=== PATIENT | female | born 1950 | race Caucasian/White ===

== ENCOUNTER 2016-12-22 13:48 | Emergency (ER) | payer MEDICARE ==
[~2016-12-22 13:48] MED LIST: 8 HOUR650 MG PO; BACLOFEN10 MG PO; CEFDINIR300 MG PO; CELLCEPT500 MG PO; CERTAGEN1 EACH PO; FEOSOL325 MG PO; LAXATIVE OF CHOICE PO; LIDODERM PATCH 51 EA TOP; LISINOPRIL 20MG20 MG PO; NEXIUM40 MG PO; NORVASC5 MG PO; PHENERGAN25 M1 PO; PLAQUENIL200 MG PO; PRILOSEC40 MG PO; REMICADE100 MG IV; RHEUMATREX2.5 MG PO; TRAZODONE 150M150 MG PO; ZANTAC300 MG PO; ZITHROMAX250 MG PO
[2016-12-22 14:29] LABS: BASOPHIL 0.2 % (0-2); EOSINOPHIL 0.6 % (0-7); HCT 37.2 % (37.0-47.0); HGB 12.4 g/dl (12.5-16.0); LYMPHOCYTE 23.5 % (15-48); MCH 31.6 pg (25.0-31.0); MCHC 33.3 g/dL (32.0-36.0); MCV 94.7 fL (78.0-100.0); MONOCYTE 7.6 % (0-12); MPV 8.5 fL (6.0-9.5); NEUTROPHIL 68.1 % (41-80); PLT 338 K/uL (150-400); RBC 3.93 M/uL (4.20-5.40); RDW 12.8 % (11.5-14.0)
[2016-12-22 14:48] LABS: BILIRUBIN - TOTAL 0.2 mg/dL (0.1-1.0); CREATININE 0.9 mg/dL (0.5-1.0); GLOBULIN (CALCULATION) 3.4 g/dL (2.2-4.2); POTASSIUM 4.2 mmol/L (3.5-5.1); TOTAL PROTEIN 7.4 g/dL (6.4-8.3)
[2016-12-22 14:57] LABS: BILIRUBIN NEGATIVE (NEGATIVE); BLOOD NEGATIVE Ery/uL (NEGATIVE); CLARITY CLEAR (CLEAR); COLOR YELLOW (YELLOW); GLUCOSE (U) NORMAL (NORMAL); KETONE (U) NEGATIVE (NEGATIVE); LEUKOCYTES 1+ Leu/uL (NEGATIVE); NITRITE NEGATIVE (NEGATIVE); PROTEIN TRACE (LOW) mg/dL (NEGATIVE); UROBILINOGEN 0.2 mg/dL (0.2-1.0); pH 6.5 (5.0-9.0)
[2016-12-22 15:01] LABS: BACTERIA 3+
== END 2016-12-22 18:52 | disposition home or self-care (01) ==
LOC: FER 13:48
PROVIDERS: Internal Medicine
DX: S02.2XXA Fracture of nasal bones, initial encounter for closed fracture (principal); S80.01XA Contusion of right knee, initial encounter; I95.9 Hypotension, unspecified; Z88.5 Allergy status to narcotic agent; Z79.899 Other long term (current) drug therapy; W22.8XXA Striking against or struck by other objects, initial encounter
CPT/HCPCS: 36415; 70160; 70450; 70551; 73564; 80053; 81001; 84484; 85025; 85651; 90471; 90715; 93005; J1170; J2175

== ENCOUNTER 2021-04-20 16:31 | Emergency (ER) | payer MEDICARE ==
[~2021-04-20 16:31] MED LIST changes: +FLEXERIL10 MG PO; +HYDROXYCHLOROQ200 MG PO; +K-DUR20 MEQ PO; +LASIX40 MG PO; +NORCO 5-325 TA1 EACH PO; +TIMOPTIC 0.5%1 EACH EYEBOTH; +ZOFRAN4 MG PO
[2021-04-20 17:34] LABS: CORONAVIRUS 2019 SARS-COV-2 NEGATIVE (NEGATIVE); INFLUENZA A NAA NEGATIVE (NEGATIVE)
[2021-04-20 19:32] LABS: BASOPHIL 0.2 % (0-2); EOSINOPHIL 0.1 % (0-7); HCT 38.5 % (37.0-47.0); HGB 12.7 g/dl (12.5-16.0); LYMPHOCYTE 16.8 % (15-48); MCH 32.3 pg (25.0-31.0); MONOCYTE 6.5 % (0-12); MPV 8.9 fL (6.0-9.5); NEUTROPHIL 76.1 % (41-80); NRBC 0; PLT 369 K/uL (150-400); RBC 3.93 M/uL (4.20-5.40); RDW 12.9 % (11.5-14.0); WBC 9.5 K/uL (4.0-10.5)
[2021-04-20 19:33] LABS: BILIRUBIN NEGATIVE (NEGATIVE); BLOOD NEGATIVE Ery/uL (NEGATIVE); CLARITY CLEAR (CLEAR); COLOR YELLOW (YELLOW); GLUCOSE (U) NORMAL (NORMAL); LEUKOCYTES 1+ Leu/uL (NEGATIVE); NITRITE NEGATIVE (NEGATIVE); PROTEIN NEGATIVE (NEGATIVE); SPECIFIC GRAVITY >=1.030 (1.001-1.030); UROBILINOGEN 0.2 mg/dL (0.2-1.0)
[2021-04-20 19:41] LABS: BACTERIA 2+
[2021-04-20 19:42] LABS: BUN/CREAT RATIO (CALC) 18.1 RATIO; CREATININE 0.83 mg/dL (0.51-0.95); MUCOUS MODERATE; POTASSIUM 4.1 mmol/L (3.5-5.1)
[2021-04-20] MEDS ORDERED: CEPHALEXIN500 MG PO (20:10)
== END 2021-04-20 20:20 | disposition home or self-care (01) ==
LOC: FER 16:31
PROVIDERS: Emergency Medicine; Nurse Practitioner Family
DX: N39.0 Urinary tract infection, site not specified (principal); I10 Essential (primary) hypertension; Z20.822 Contact with and (suspected) exposure to COVID-19; Z88.5 Allergy status to narcotic agent
CPT/HCPCS: 36415; 80048; 81001; 85025; 87088; 99284; U0002

== ENCOUNTER → 2021-08-14 | Day surgery (SDC) | payer MEDICARE ==
[~2021-08-14] VITALS: Ht 172.7 cm; Wt 72.6 kg
[~2021-08-14] MED LIST changes: +CEPHALEXIN500 MG PO; +RHEUMATREX2.5 MG IM; -RHEUMATREX2.5 MG PO; +RITUXIMAB IV
[2021-08-14 09:12] LABS: HCT 33.5 % (37.0-47.0); HGB 11.1 g/dl (12.5-16.0); MCH 32.4 pg (25.0-31.0); MCHC 33.1 g/dL (32.0-36.0); MCV 97.7 fL (78.0-100.0); MPV 8.7 fL (6.0-9.5); RBC 3.43 M/uL (4.20-5.40); RDW 13.1 % (11.5-14.0); WBC 8.8 K/uL (4.0-10.5)
[2021-08-14 09:33] LABS: ALBUMIN 3.6 g/dL (3.4-5.0); BILIRUBIN - TOTAL 0.4 mg/dL (0.2-1.0); BUN/CREAT RATIO (CALC) 27.6 RATIO; CREATININE 0.76 mg/dL (0.51-0.95); GLOBULIN (CALCULATION) 3.9 g/dL; POTASSIUM 4.3 mmol/L (3.5-5.1); TOTAL PROTEIN 7.5 g/dL (6.4-8.2)
== END | disposition home or self-care (01) ==
LOC: FAS 08:24
PROVIDERS: Surgery
DX: Z12.11 Encounter for screening for malignant neoplasm of colon (principal); D12.3 Benign neoplasm of transverse colon; K63.89 Other specified diseases of intestine; K57.30 Diverticulosis of large intestine without perforation or abscess without bleeding; I10 Essential (primary) hypertension; Z96.659 Presence of unspecified artificial knee joint; Z95.828 Presence of other vascular implants and grafts
CPT/HCPCS: 36415; 80053; J0690; J2704; J7120